=== PATIENT | male | born 1995 | race Caucasian/White ===

== ENCOUNTER 2022-10-01 05:30 | Emergency (ER) | payer OTHER, SELFPAY ==
[2022-10-01 05:44] VITALS: BP 139/85; PULSE 73; RESP 20; TEMP 36.1; O2SAT 97; BMI 41.1
--- NOTE | 2022-10-01 05:47 | CRLHL7_ITS ---
For Patients: As a result of the Century Cures Act, medical imaging exams and procedure reports are released immediately into your electronic medical record. You may view this report before your referring provider. If you have questions, please contact your health care provider. INDICATION: Left flank pain TECHNIQUE: CT abdomen and pelvis without contrast, stone protocol. COMPARISON: CT abdomen pelvis May 24, 2014 FINDINGS: Kidney/ureters: There is a 4 mm stone within the left proximal to mid ureter without significant hydronephrosis. No additional radiopaque stones are seen within the kidneys. The bladder is decompressed. Liver/gallbladder/bile ducts: Hepatomegaly and hepatic steatosis. Gallbladder is normal without visualized stones or inflammation. No biliary dilatation. Spleen/pancreas/adrenal glands: The spleen, adrenal glands and pancreas are within normal limits. GI tract: The bowel is unremarkable. Normal appendix. Abdominal wall/omentum/peritoneum: No free air or significant free fluid. No mass or inflammation. Lymph nodes: No lymphadenopathy. Pelvis: Unremarkable pelvis. Lower chest: Unremarkable. IMPRESSION: There is a 4 mm stone within the left proximal to mid ureter without significant hydronephrosis. No additional intrarenal calculi are identified. Hepatomegaly and steatosis. Please note that all CT scans at this facility use dose modulation, iterative reconstruction, and/or weight-based dosing when appropriate to reduce radiation dose to as low as reasonably achievable. Dictated by Duong Avery MD @ 10/01/2022 6:51:56 AM (Electronically Signed)
[2022-10-01 06:03] LABS: Basophils Absolute Auto 0.01 K/uL (0.00-0.30); Basophils Percent Auto 0.1 % (0.0-3.0); Eosinophils Absolute Auto 0.11 K/uL (0.00-0.50); Eosinophils Percent Auto 1.4 % (0.0-7.0); Hematocrit 40.7 % (37.0-53.0); Hemoglobin* 14.1 gm/dL (13.5-17.5); Immature Granulocytes Abs Auto 0.06 K/uL (0.00-0.30); Immature Granulocytes Pct Auto 0.7 %; Lymphocytes Percent Auto 38.6 % (20-44); Mean Corpuscular HGB Conc 35 gm/dL (32-36); Mean Corpuscular Hemoglobin 28 pg (26-34); Mean Corpuscular Volume 82 fL (80-100); Monocytes Percent Auto 10.7 % (0.0-11.0); Neutrophils Percent Auto 48.5 % (42.0-72.0); Platelet Count* 283 K/uL (140-440); RDW Coefficient of Variation % 12.7 % (11.5-15.5); Red Blood Count 4.96 m/uL (4.30-5.90); Slide Review Reflex No; White Blood Count* 8.04 K/uL (4.50-11.00)
[2022-10-01] MEDS: KETOROLAC 15 MG/ML inj IVP (06:05)
[2022-10-01] MEDS: 0.9 % SODIUM CHLORIDE 1000 ml 1,000 ML IV (06:05)
[2022-10-01 06:16] LABS: Chloride* 109 mmol/L (96-114); Potassium* 3.8 mmol/L (3.6-5.1); Sodium* 138 mmol/L (135-149)
[2022-10-01 06:19] LABS: Creatinine* 0.9 mg/dL (0.5-1.5); Est. Creatinine Clearance* 131.31; Estimated Glomerular Filt Rate 120 ml/min
[2022-10-01 06:20] LABS: Blood Urea Nitrogen* 15 mg/dL (5-24); Calcium* 8.6 mg/dL (8.4-10.6); Carbon Dioxide* 22 mmol/L (20-32); Glucose* 133 mg/dL (60-115)
[2022-10-01 06:22] LABS: C Reactive Protein* 0.7 mg/dL (0.5-1.0)
[2022-10-01 06:36] VITALS: PULSE 88; RESP 16; O2SAT 96
[2022-10-01] MEDS: ONDANSETRON 2 MG/ML inj 4 MG IVP (07:00)
[2022-10-01] MEDS: TAMSULOSIN HCL 0.4 MG CAPSULE PO (07:00)
--- NOTE | 2022-10-01 07:24 | ED_ITS ---
HPI - Abdominal Pain General Chief Complaint: Abdominal Pain Stated Complaint: Extreme abdominal pain LT side Time Seen by Provider: 10/01/22 05:43 History of Present Illness HPI narrative: 27-year-old young man presenting to the emergency department with complaint of sudden onset of severe sharp pain in the left side/abdomen. Somewhat colicky in nature. No dysuria noted. No hematuria. Is not really nauseated. Pain does kind of radiate to the groin. No personal or family history of nephrolithiasis other than apparently grandfather did. Has not any fever. No cough or cold symptoms. No trauma. No shortness of breath. Denies constipation. Related Data Home Medications Medication Instructions Recorded Confirmed ibuprofen 200 mg tablet (Advil) 600 mg PO Q6-8H PRN 10/01/22 10/01/22 Previous Rx's Medication Instructions Recorded tamsulosin 0.4 mg capsule (Flomax) 0.4 mg PO DAILY #15 caps 10/01/22 Allergies Allergy/AdvReac Type Severity Reaction Status Date / Time No Known Drug Allergies Allergy Verified 10/01/22 05:49 Review of Systems Status of ROS Reports: 10 or more systems reviewed and unremarkable except as noted in History and below [facility] Medical History EDI (obstructive sleep apnea) Social History Smoking Status: Never smoker Do you use any of these nicotine containing products: None Second hand tobacco smoke exposure: No Non-prescribed substance use: denies use service: No Exam Narrative: Exam Narrative: Pleasant. Not demonstrating tremendously in discomfort though clearly uncomfortable. More audible outside the room are his groans. In person he appears to try to hold together. Breathing easily. Oropharynx is moist. Lungs are clear with no flank pain. Maybe mildly uncomfortable to palpation over the left mid to low abdomen but not particularly reproducible. Abdomen otherwise is obese and soft with out peritoneal signs. Heart is with a regular rate and rhythm. Distant. Extremities are well perfused without edema. Const: Vital Signs, click to edit/add: Vital Signs - 24 hr 10/01/22 05:44 Temperature 96.9 F L Pulse Rate [Right Pulse Oximeter] 73 Respiratory Rate 20 Blood Pressure [Ri ght Upper Arm] 139/85 Pulse Oximetry 97 Oxygen Delivery Me thod Room Air Documenting provider has reviewed patient's vital signs: yes Course Vital Signs Vital signs: Initial Vital Signs Temperature 96.9 F L 10/01/22 05:44 Temperature Source Temporal Artery Scan 10/01/22 05:44 Pulse Rate 73 10/01/22 05:44 Respiratory Rate 20 10/01/22 05:44 Blood Pressure 139/85 10/01/22 05:44 Blood Pressure Mean 103 10/01/22 05:44 Blood Pressure Position Semi-Fowlers 10/01/22 05:44 Pulse Oximetry 97 10/01/22 05:44 Oxygen Delivery Method 10/01/22 05:44 Vital Signs Temperature 96.9 F L 10/01/22 05:44 Pulse Rate 73 10/01/22 05:44 Respiratory Rate 20 10/01/22 05:44 Blood Pressure 139/85 10/01/22 05:44 Pulse Oximetry 97 10/01/22 05:44 Oxygen Delivery Method 10/01/22 05:44 Temperature 96.9 F L 10/01/22 05:44 Pulse Rate 73 10/01/22 05:44 Respiratory Rate 20 10/01/22 05:44 Blood Pressure 139/85 10/01/22 05:44 Pulse Oximetry 97 10/01/22 05:44 Oxygen Delivery Method 10/01/22 05:44 MDM - Abdominal Pain MDM Narrative Medical decision making narrative: Symptoms do seem consistent with kidney stone/ureteral colic. With that in mind did order CT imaging directly. Labs as well IV fluids. He had had some ibuprofen but I think there is still some dosing room for ketorolac. He declined initial dose morphine wanting to be able to drive himself home. Pain was improved though still present. Closer to depart he did have increase in pain and some nausea. Is given Zofran and Flomax. He felt he could manage with pain medication outpatient. Labs reviewed and look WNL. CT abdomen pelvis reviewed by me shows a 4 mm stone in the proximal left ureter with what appears to be some mild hydronephrosis. Radiology also noting hepatic steatosis and hepatomegaly. Lab Data Attestation: I reviewed the patient's lab results. Labs: Lab Results 10/01/22 10/01/22 Range/Units 05:50 05:50 WBC 8.04 (4.50-11.00) K/uL RBC 4.96 (4.30-5.90) m/uL Hgb 14.1 (13.5-17.5) gm/dL Hct 40.7 (37.0-53.0) % MCV 82 (80-100) fL MCH 28 (26-34) pg MCHC 35 (32-36) gm/dL RDW Coeff of Rashmi 12.7 (11.5-15.5) % Plt Count 283 (140-440) K/uL Neut % (Auto) 48.5 (42.0-72.0) % Lymph % (Auto) 38.6 (20-44) % [place] % (Auto) 10.7 (0.0-11.0) % Eos % (Auto) 1.4 (0.0-7.0) % Baso % (Auto) 0.1 (0.0-3.0) % Neut # (Auto) 3.90 (1.7-7.0) K/uL Lymph # (Auto) 3.10 H (0.90-2.90) K/uL [place] # (Auto) 0.90 (0.00-0.90) K/UL Eos # (Auto) 0.11 (0.00-0.50) K/uL Baso # (Auto) 0.01 (0.00-0.30) K/uL Sodium 138 (135-149) mmol/L Potassium 3.8 (3.6-5.1) mmol/L Chloride 109 (96-114) mmol/L Carbon Dioxide 22 (20-32) mmol/L BUN 15 (5-24) mg/dL Creatinine 0.9 (0.5-1.5) mg/dL Estimated Creat Clear 131.31 Estimated GFR 120 ml/min Glucose 133 H (60-115) mg/dL Calcium 8.6 (8.4-10.6) mg/dL C-Reactive Protein 0.7 (0.5-1.0) mg/dL Discharge Plan Discharge Clinical Impression: Ureteral colic, Calculus, ureteral Patient Disposition: Home, Self-Care Condition: Stable Additional Instructions: Focus on hydration. Should be drinking generally 2-3 L of water daily. Strain your urine over this next week. If this stone can be collected in can be analyzed to give you further information on how to prevent more stone formation beyond just ?hydrate more?. It can take up to 800 mg of ibuprofen per dose. This can be combined with your prescribed medications. Percocet and Zofran from [facility]. Flomax at the pharmacy can help with some of the spasming. Return for uncontrolled pain, intractable vomiting, fever. Be seen also for pain persisting 5 days at which point we would consider reimaging in some form and possibly labs as well. Prescriptions: New tamsulosin [Flomax] 0.4 mg capsule 0.4 mg PO DAILY Qty: 15 0RF No Action ibuprofen [Advil] 200 mg tablet 600 mg PO Q6-8H PRN Follow Up/Referrals: Provider,Not a Local [Primary Care Provider] - Stand Alone Forms: [employer] Info Instructions
== END 2022-10-01 07:34 | disposition home or self-care (01) ==
PROVIDERS: Emergency Provider Family Medicine
DX: N20.1 Calculus of ureter (principal)
CPT/HCPCS: 36415; 74176; 80048; 81001; 85025; 86140; 96374; 96375; 99284; A9270; J1885; J2405; J7030

== ENCOUNTER 2022-10-03 18:05 | Emergency (ER) | payer OTHER, SELFPAY ==
[2022-10-03 18:11] VITALS: BP 156/95; PULSE 91; RESP 16; TEMP 36.6; O2SAT 99; BMI 40.7
--- NOTE | 2022-10-03 18:31 | ED_ITS ---
HPI - General Adult General Chief complaint: Flank Pain Stated complaint: Kidney Stone Time Seen by Provider: 10/03/22 18:08 History of Present Illness HPI narrative: This 27-year-old male comes in with flank pain and abdominal pain from a kidney stone that was diagnosed a couple days ago. He had a CT scan which showed a 4 mm stone in the proximal ureter. He received Flomax, a few tablets of Percocet, and Zofran. He states that he has run out of the Percocet but continues to have enough pain where he would benefit from some kind a treatment. He does not report any fevers or symptoms of dysuria otherwise. He states that this is his 1st kidney stone. Related Data Home Medications Medication Instructions Recorded Confirmed ibuprofen 200 mg tablet (Advil) 600 mg PO Q6-8H PRN 10/01/22 10/01/22 Previous Rx's Medication Instructions Recorded tamsulosin 0.4 mg capsule (Flomax) 0.4 mg PO DAILY #15 caps 10/01/22 hydrocodone 5 mg-acetaminophen 325 1 tab PO Q4-6H PRN pain #20 tabs 10/03/22 mg tablet ketorolac 10 mg tablet 10 mg PO Q8H 5 days #20 tabs 10/03/22 Allergies Allergy/AdvReac Type Severity Reaction Status Date / Time No Known Drug Allergies Allergy Verified 10/01/22 05:49 Review of Systems Status of ROS: Reports: 10 or more systems reviewed and unremarkable except as noted in History and below Narrative: Constitutional: No fevers, no weight gain or loss. Eyes: No discharge. No vision changes. HENT: No congestion, no sore throat, no ear pain. Cardiovascular: No chest pain, no palpitations. Respiratory: No shortness of breath, no wheezes, no cough. Gastrointestinal: No vomiting, no diarrhea. Flank pain and abdominal pain related to kidney stone. Genitourinary: No dysuria, no hematuria. Musculoskeletal: Normal range of motion. Skin: No rashes, no pruritis. Neurological: No dizziness, weakness, sensory change, speech change. Endo/Heme/Allergies: No bruising or bleeding. No polydipsia. Pysch: no suicidality, no anxiety, no insomnia. All other systems reviewed and are negative. [facility] Medical History EDI (obstructive sleep apnea) Social History Smoking Status: Never smoker Do you use any of these nicotine containing products: None Second hand tobacco smoke exposure: No Non-prescribed substance use: denies use service: No Exam Narrative: Exam Narrative: Constitutional: Well-developed, well-nourished, no acute distress. HEENT: Normocephalic, atraumatic. Neck: Normal range of motion. Nontender. Supple. Heart: Intact distal pulses. Lungs: No chest discomfort. No wheezes, rhonchi, or rales. Abdomen: Diffuse tenderness. No rebound tenderness. Back: Normal range of motion. Extremities: Normal range of motion. No injury. Skin: Intact. No rash. Warm. No erythema or pallor. Neurologic: No altered sensation. No weakness. Alert and oriented. Psychiatric: No suicidality. No anxiety or depression. No insomnia. Nursing notes and vitals signs are reviewed. Const: Vital Signs, click to edit/add: Vital Signs - 24 hr 10/03/22 18:11 Temperature 97.8 F Pulse Rate [Right Pulse Oximeter] 91 Respiratory Rate 16 Blood Pressure [Le ft Upper Arm] 156/95 H Pulse Oximetry 99 Oxygen Delivery Me thod Room Air Course Vital Signs Vital signs: Initial Vital Signs Temperature 97.8 F 10/03/22 18:11 Temperature Source Temporal Artery Scan 10/03/22 18:11 Pulse Rate 91 10/03/22 18:11 Respiratory Rate 16 10/03/22 18:11 Blood Pressure 156/95 H 10/03/22 18:11 Blood Pressure Mean 115 10/03/22 18:11 Blood Pressure Position Sitting 10/03/22 18:11 Pulse Oximetry 99 10/03/22 18:11 Oxygen Delivery Method 10/03/22 18:11 Vital Signs Temperature 97.8 F 10/03/22 18:11 Pulse Rate 91 10/03/22 18:11 Respiratory Rate 16 10/03/22 18:11 Blood Pressure 156/95 H 10/03/22 18:11 Pulse Oximetry 99 10/03/22 18:11 Oxygen Delivery Method 10/03/22 18:11 Temperature 97.8 F 10/03/22 18:11 Pulse Rate 91 10/03/22 18:11 Respiratory Rate 16 10/03/22 18:11 Blood Pressure 156/95 H 10/03/22 18:11 Pulse Oximetry 99 10/03/22 18:11 Oxygen Delivery Method 10/03/22 18:11 Medical Decision Making MDM Narrative Medical decision making narrative: This patient is having recurrent symptoms related to a kidney stone. He has normal vital signs and does not appear to be in any acute distress at the current time. I reviewed lab and imaging results from his previous visit. His stone is 4 mm and in the proximal ureter 2 days ago. He is still having symptoms and may need some time for this stone to pass which is most likely to be happening without any intervention. I did prescribe Toradol and [place]. He does have sufficient amounts of Zofran and Flomax. I advised him regarding signs and symptoms that would indicate a need for follow-up with Urology or return to emergency department. Discharge Plan Discharge Clinical Impression: Calculus, ureteral Patient Disposition: Home, Self-Care Condition: Stable Additional Instructions: Take medication as prescribed and needed. Avoid taking ibuprofen or Aleve when taking Toradol. Follow up with MD or return if worsening symptoms happen. Prescriptions: New hydrocodone-acetaminophen 5-325 mg tablet 1 tab PO Q4-6H PRN (Reason: pain) Qty: 20 0RF ketorolac 10 mg tablet 10 mg PO Q8H 5 Days Qty: 20 0RF No Action ibuprofen [Advil] 200 mg tablet 600 mg PO Q6-8H PRN tamsulosin [Flomax] 0.4 mg capsule 0.4 mg PO DAILY Qty: 15 0RF Follow Up/Referrals: Provider,Not a Local [Primary Care Provider] - Stand Alone Forms: [employer] Info Instructions
[2022-10-03 18:42] VITALS: BP 148/89; PULSE 87; RESP 16; TEMP 36.6
== END 2022-10-03 18:43 | disposition home or self-care (01) ==
PROVIDERS: Emergency Provider Emergency Medicine Emergency Medical Services
DX: N20.1 Calculus of ureter (principal)
CPT/HCPCS: 99283; 99284